=== PATIENT | female | born 1955 | race Caucasian/White ===

== ENCOUNTER 2018-06-30 15:07 | Outpatient (REF) | payer BC, SELFPAY ==
--- NOTE | 2018-06-30 13:30 | PAPFT_PTH ---
PATIENT: SHAVONNE MOROCHO LOC: [facility] U#:[id number] AGE/SX: 63/F ROOM: RE06/30/[address]: Deanna Kim : 1955 BED: DIS: 06/30/2018 SPEC #: [id number] RECD: 06/30/18 15:22 STATUS: MARII REJhoan #: [id number] ZEE: 06/30/18 13:[address]: Deanna Kim DEPT: [facility] Cytology RECD BY: Malloyr Brito ENTERED: 06/30/18 15:23 SP TYPE: PAPFT OTHR DR: Cielo Miguel Tissues: 1 - CX/ENDOCX FOR PAP SMEARS Procedures: PAP THIN PREP/[facility] Screening HPV DNA PROBE Comments: [id number]
== END 2018-06-30 15:27 ==
LOC: LBN 15:07
PROVIDERS: PCP Nurse Practitioner; Visit Provider Obstetrics & Gynecology Gynecology
DX: Z12.4 Encounter for screening for malignant neoplasm of cervix (principal); Z11.51 Encounter for screening for human papillomavirus (HPV)
CPT/HCPCS: 88142; 87624